=== PATIENT | female | born 2000 | race Caucasian/White ===

== ENCOUNTER 2024-04-19 23:22 | Emergency (ER) | payer OTHER, MEDICAID ==
[~2024-04-19] VITALS: Ht 167.6 cm; Wt 87.0 kg
[2024-04-19 23:35] VITALS: O2SAT 99
[2024-04-19 23:47] VITALS: TEMP 36.9
[2024-04-20] MEDS ORDERED: ACETAMINOPHEN 500MG TABLET PO NR (02:15)
[2024-04-20] MEDS ORDERED: NAPR-1176 MT (03:02)
[2024-04-20] MEDS ORDERED: LIDO700A15 TP (03:02)
[2024-04-20] MEDS: ACETAMINOPHEN 500MG TABLET PO ONE (04:19)
[2024-04-20 06:28] VITALS: BP 100/62; PULSE 74; RESP 18; O2SAT 100
[2024-04-20] MEDS ORDERED: IOHEXOL-300 100 ML BOTTLE ONE (07:02)
== END 2024-04-20 06:23 | disposition home or self-care (01) ==
LOC: ER 23:35
DX: R07.89 Other chest pain (principal); M25.562 Pain in left knee; V49.9XXA Car occupant (driver) (passenger) injured in unspecified traffic accident, initial encounter; Y93.89 Activity, other specified; Y92.89 Other specified places as the place of occurrence of the external cause; Y99.8 Other external cause status
CPT/HCPCS: 71045; 73562; 99285; 71260; 71250; 74177; Q9967; Z7610